=== PATIENT | female | born 1970 | race Caucasian/White ===

== ENCOUNTER → 2017-02-15 | Day surgery (SDC) | payer BC ==
[~2017-02-15] VITALS: Ht 165.1 cm; Wt 106.5 kg
[~2017-02-15] MED LIST: *morphine SULFATE 8 MG/ML PERIprocedure ONLY ONE; DEXAMETHASONE SOD PHOS 4 MG/ML VIAL ONE; DO NOT ADM ANY ANTICOAGULANT DRUGS XX PRN; FAMOTIDINE 20 MG/2 ML VIAL ONE; INSULIN HUMAN REGULAR 1,000 UNITS/10 ML VIAL SQ PRN; KETOROLAC TROMETHAMINE 30 MG/ML (IVP) VIAL ONE; LACTATED RINGER'S 1000 ML IV SCH; LIDOCAINE 1%/EPINEPHrine 1:100,000 SOLN 50 ML VIAL ONE; LORA-392 PO; METOPROLOL TARTRATE 25 MG TAB PO PRN; MIDAZOLAM HCL 2 MG/2 ML VIAL ONE; ONDANSETRON HCL 4 MG/2 ML VIAL IV PUSH ONE; PROPOFOL 200 MG/20 ML AMP IV ONE; SODIUM CHLORID 0.9% 500 ML IV SCH; ceFAZolin INJ 1,000 MG VIAL ONE; oxyCODONE/ACETAMINOPHEN 5 MG/325 MG TAB PO PRN
[2017-02-15 12:56] VITALS: BP 152/89; PULSE 86; RESP 20; TEMP 98.3; O2SAT 98
--- NOTE | 2017-02-15 13:38 | RADRPT ---
EXAM DATE/TIME: 02/15/2017 12:26 [place] COMPARISON: No previous studies available for comparison. INDICATIONS : Evaluate for pneumothorax, pneumonia, or communicable disease. Pre op cervical biopsy. MEDICAL HISTORY : None. SURGICAL HISTORY : None. ENCOUNTER: Initial ACUITY: 1 day PAIN SCORE: 0/10 LOCATION: Bilateral chest FINDINGS: Single AP view of the chest. The lungs are clear. Cardiomediastinal silhouette within normal limits. No evidence of pleural effusion or pneumothorax. CONCLUSION: No acute cardiopulmonary disease identified. Jani Baltazar MD on February 15, 2017 at 13:36 Board Certified Radiologist. This report was verified electronically.
[2017-02-15 16:05] VITALS: BP 177/96; PULSE 77; RESP 18; TEMP 98.3; O2SAT 99
--- NOTE | 2017-02-15 21:26 | EKG ---
Date Performed: 02/15/2017 Time Performed: 12:33:22 PTAGE: 46 years EKG: Sinus rhythm NORMAL ECG NO PREVIOUS TRACING DOCTOR: Tika Winter Interpretating Date/Time 02/15/2017 21:25:07
--- NOTE | 2017-02-17 08:27 | MP ---
cc: ZOË OH KELLY L. MD DATE OF SURGERY: 02/15/2017 PREOPERATIVE DIAGNOSIS High-grade endocervical dysplasia. POSTOPERATIVE DIAGNOSIS High-grade endocervical dysplasia. PROCEDURE Examination under anesthesia, cold knife conization of the cervix, fractional dilation and curettage. SURGEON Lauryn Zaavla MD DRAM[employer]IC [employer]ENT [employer]. ANESTHESIA General endotracheal anesthesia. ESTIMATED BLOOD LOSS 20 ccs. HISTORY 46-year-old female who approximately a year ago underwent a LEEP procedure for high-grade cervical dysplasia, had positive ectocervical margins, approximately one year until recent followup for abnormal Pap smear led to colposcopy and further evaluation including an endocervical curetting. Endocervical curetting showed detached high-grade dysplasia. She was seen in our office and counseled and recommended updated evaluation including conization, endocervical sampling as well as considering endometrial sampling to clarify how high the level of abnormality extended. She is seen again in preop holding area where these findings, recommendations are again reviewed. She expressed good understanding after questions were answered and wanted to proceed as discussed. FINDINGS On exam under anesthesia there is no appreciably enlarged inguinal or femoral lymph nodes. External genitalia without mass or lesion. The cervix grossly appears normal. There is some minor changes consistent to prior LEEP procedure. After application of dilute acetic acid there were no overtly neoplastic changes on the ectocervix. The transformation zone was not well-visualized. The uterine cavity sounded to a depth of 7.5 cm. The amount of tissue obtained from the endocervical and endometrial curettings after the conization were scant. PROCEDURE The patient was taken to the operating room and placed in dorsal lithotomy position, after general endotracheal anesthesia was administered, time-out was undertaken. The patient was identified by sight recognition and hospital ID bracelet and the proposed procedure was reviewed and confirmed. Examination under anesthesia was performed with findings as described above. She was prepped and draped in sterile fashion. Dilute acetic acid was applied to the cervix and upper vagina. Inspection were with findings as described above. No overt neoplastic change on the ectocervix. 3-0 Vicryl sutures were placed at the 3 o'clock and 9 o'clock position on the lateral wall of the cervix. Lidocaine epinephrine was injected circumferentially into the cervical stroma. The axis of the endocervical canal was identified using a uterine sound and scalpel was used to carry out circumferential conization specimen starting peripherally on the ectocervix and angling in high in the endocervical canal and this was removed as endocervix. Endocervical curettings were then performed proximal to the apex of the conization and then the endocervical canal was dilated and small curette was used to sample the endometrium with findings as described above. The cone bed was completely cauterized and topical Monsel's solution was applied. The site was completely hemostatic. There were no remaining foreign objects in the vagina. Preliminary and final counts were correct. She was returned to dorsal supine position and pending reversal of anesthesia when I left the operating room to precede her to the Post Anesthesia Care Unit. MD LIONEL Ayala/WALLACE /3:37 PM /8:13 AM
== END | disposition home or self-care (01) ==
LOC: HSDC 11:37
PROVIDERS: ATTEND Obstetrics & Gynecology Gynecologic Oncology
DX: D06.9 Carcinoma in situ of cervix, unspecified (principal); Z01.810 Encounter for preprocedural cardiovascular examination
CPT/HCPCS: 00940; 57520; 71010; 86850; 86900; 86901; 88305; 88307; 93005; J0690; J1100; J1885; J2250; J2270; J2405; J3010